=== PATIENT | male | born 1990 ===

== ENCOUNTER 2021-02-20 20:06 | Emergency (ER) | payer OTHER ==
[2021-02-20] MEDS ORDERED: Albuterol 8 GM Inhaler INH ONE (20:07)
[2021-02-20] MEDS ORDERED: Sodium Chloride 0.9% 10 ML Syringe FLUSH PRN (20:07)
[2021-02-20] MEDS ORDERED: Azithromycin 250 MG Tab PO ONE (20:07)
[2021-02-20] MEDS ORDERED: Albuterol/Ipratropium 3.0-0.5 MG/3 ML Neb Soln NEB ONE (20:07)
[2021-02-20] MEDS ORDERED: predniSONE 20 MG Tab PO ONE (20:07)
--- NOTE | 2021-02-20 20:10 | EDM.PDOC ---
ED HPI GENERAL MEDICAL PROBLEM - General Stated Complaint: BREATHING COMPLICATION Time Seen by Provider: 02/20/21 20:08 Source of Information: Reports: Patient History Limitations: Reports: No Limitations - History of Present Illness INITIAL COMMENTS - FREE TEXT/NARRATIVE: David complains of a cough for 3 days. In the last few hours,he has now developed shortness of breath and left sided chest pain; No fever. He his a smoker,but otherwise previously healthy., Headache Pain Score (Numeric/FACES): 7 - Related Data Allergies Allergy/AdvReac Type Severity Reaction Status Date / Time No Known Allergies Allergy Verified 02/20/21 21:01 Home Meds: Home Meds NK [No Known Home Meds] 02/20/21 [History] ED ROS GENERAL - Review of Systems Review Of Systems: Comprehensive ROS is negative, except as noted in HPI. ED EXAM, GENERAL - Physical Exam Exam: See Below Exam Limited By: No Limitations General Appearance: Anxious, Mild Distress Ears: Normal External Exam Ear Exam: Bilateral Ear: Auricle Normal, Canal Normal, TM normal Nose: Normal Inspection Throat/Mouth: Normal Inspection Head: Atraumatic Neck: Normal Inspection Respiratory/Chest: Rhonchi, Wheezing Cardiovascular: Normal Peripheral Pulses, Tachycardia GI/Abdominal: Normal Bowel Sounds Back Exam: Normal Inspection Extremities: Normal Inspection Neurological: Alert, Oriented, Abnormal Reflexes Skin Exam: Diaphoretic #1 Interpretation EKG Date: 02/20/21 Rhythm: NSR Range: Normal P-Wave: Present QRS: Normal ST-T: Normal Course - Vital Signs Last Recorded V/S: Last Vital Signs Temp 98.2 F 02/20/21 20:21 Pulse 78 02/20/21 20:21 Resp 30 H 02/20/21 20:21 BP 132/74 02/20/21 20:21 Pulse Ox 97 02/20/21 20:21 - Orders/Labs/Meds Orders: Active Orders 24 hr Category Date Time Status EKG Documentation Completion [RC] ASDIRECTED Care 02/20/21 20:07 Active RT Aerosol Therapy [RC] ASDIRECTED Care 02/20/21 20:08 Active Chest 1V Frontal [CR] Stat Exams 02/20/21 20:07 Taken CORONAVIRUS COVID-19 MANDA [MOLEC] Urgent Lab 02/20/21 20:55 Received Sodium Chloride 0.9% [Normal Saline] 1,000 ml Med 02/20/21 20:15 Active IV ASDIRECTED Sodium Chloride 0.9% [Saline Flush] Med 02/20/21 20:07 Active 10 ml FLUSH ASDIRECTED PRN Peripheral IV Insertion Adult [OM.PC] Routine Oth 02/20/21 20:07 Ordered EKG 12 Lead [EK] Routine Ther 02/20/21 20:07 Ordered Medication Orders Sodium Chloride (Normal Saline) 1,000 mls @ 999 mls/hr IV ASDIRECTED CHIQUIS Last Admin: 02/20/21 20:10 Dose: 999 mls/hr Documented by: SELVIN Sodium Chloride (Sodium Chloride 0.9% 10 Ml Syringe) 10 ml FLUSH ASDIRECTED PRN PRN Reason: Keep Vein Open Last Admin: 02/20/21 20:06 Dose: 10 ml Documented by: SELVIN Labs: Laboratory Tests 02/20/21 02/20/21 02/20/21 Range/Units 20:12 20:12 20:12 WBC 7.0 (3.2-10.1) x10-3/uL RBC 5.27 (3.90-5.90) x10(6)uL Hgb 15.5 (12.9-17.7) g/dL Hct 45.1 (38.3-50.1) % MCV 85.5 (80.8-98.7) fL MCH 29.3 (27.0-33.3) pg MCHC 34.3 (28.7-35.3) g/dL RDW 13.3 (12.4-15.0) % Plt Count 209 (117-477) x10(3)uL MPV 8.4 (6.7-11.0) fL Neut % (Auto) 47.5 (40.3-71.8) % Lymph % (Auto) 33.8 (15.8-45.3) % [place] % (Auto) 15.7 H (5.5-15.2) % Eos % (Auto) 2.2 (0.1-6.8) % Baso % (Auto) 0.8 (0.3-3.8) % Neut # (Auto) 3.3 (1.7-6.9) x10-3/uL Lymph # (Auto) 2.4 (0.5-4.5) x10-3/uL [place] # (Auto) 1.1 (0.0-1.2) x10-3/uL Eos # (Auto) 0.2 (0.0-0.6) x10-3/uL Baso # (Auto) 0.1 (0.0-0.3) x10-3/uL D-Dimer, Quantitative 0.65 H (0.0-0.59) mg/LFEU Sodium 142 (135-145) mmol/L Potassium 3.5 (3.5-5.3) mmol/L Chloride 102 (100-110) mmol/L Carbon Dioxide 26 (21-32) mmol/L BUN 13 (7-18) mg/dL Creatinine 1.3 (0.70-1.30) mg/dL Est Cr Clr Drug Dosing TNP Estimated GFR (MDRD) > 60 (>60) BUN/Creatinine Ratio 10.0 (9-20) Glucose 150 H (80-116) mg/dL Calcium 8.7 (8.6-10.2) mg/dL Total Bilirubin 0.3 (0.1-1.3) mg/dL AST 27 H (5-25) IU/L ALT 64 H (12-36) U/L Alkaline Phosphatase 68 (56-112) IU/L Troponin I (4.0-60.3) pg/mL NT-Pro-B Natriuret Pep (<=125) pg/mL Total Protein 7.8 (6.0-8.0) g/dL Albumin 4.0 (3.5-5.2) g/dL Globulin 3.8 g/dL Albumin/Globulin Ratio 1.1 /16/ Range/Units 20:12 WBC (3.2-10.1) x10-3/uL RBC (3.90-5.90) x10(6)uL Hgb (12.9-17.7) g/dL Hct (38.3-50.1) % MCV (80.8-98.7) fL MCH (27.0-33.3) pg MCHC (28.7-35.3) g/dL RDW (12.4-15.0) % Plt Count (117-477) x10(3)uL MPV (6.7-11.0) fL Neut % (Auto) (40.3-71.8) % Lymph % (Auto) (15.8-45.3) % [place] % (Auto) (5.5-15.2) % Eos % (Auto) (0.1-6.8) % Baso % (Auto) (0.3-3.8) % Neut # (Auto) (1.7-6.9) x10-3/uL Lymph # (Auto) (0.5-4.5) x10-3/uL [place] # (Auto) (0.0-1.2) x10-3/uL Eos # (Auto) (0.0-0.6) x10-3/uL Baso # (Auto) (0.0-0.3) x10-3/uL D-Dimer, Quantitative (0.0-0.59) mg/LFEU Sodium (135-145) mmol/L Potassium (3.5-5.3) mmol/L Chloride (100-110) mmol/L Carbon Dioxide (21-32) mmol/L BUN (7-18) mg/dL Creatinine (0.70-1.30) mg/dL Est Cr Clr Drug Dosing Estimated GFR (MDRD) (>60) BUN/Creatinine Ratio (9-20) Glucose (80-116) mg/dL Calcium (8.6-10.2) mg/dL Total Bilirubin (0.1-1.3) mg/dL AST (5-25) IU/L ALT (12-36) U/L Alkaline Phosphatase (56-112) IU/L Troponin I 4.9 (4.0-60.3) pg/mL NT-Pro-B Natriuret Pep 11 (<=125) pg/mL Total Protein (6.0-8.0) g/dL Albumin (3.5-5.2) g/dL Globulin g/dL Albumin/Globulin Ratio Meds: Medications Generic Name Dose Route Start Last Admin Trade Name Freq PRN Reason Stop Dose Admin Sodium Chloride 1,000 mls @ 999 mls/hr 02/20/21 20:15 02/20/21 20:10 Normal Saline IV 999 mls/hr ASDIRECTED CHIQUIS Administration Sodium Chloride 10 ml 02/20/21 20:07 02/20/21 20:06 Sodium Chloride 0.9% 10 Ml Syringe FLUSH 10 ml ASDIRECTED PRN Administration Keep Vein Open Discontinued Medications Generic Name Dose Route Start Last Admin Trade Name Samuel PRN Reason Stop Dose Admin Albuterol/Ipratropium 3 ml 02/20/21 20:07 02/20/21 20:12 Albuterol/Ipratropium 3.0-0.5 Mg/3 Ml Neb Soln NEB 02/20/21 20:08 3 ml ONETIME ONE Administration Departure - Departure Time of Disposition: 21:12 Disposition: Home, Self-Care 01 Condition: Good Clinical Impression: SOB (shortness of breath) on exertion Instructions: Acute Bronchitis, Adult, [id number] Referrals: PCP,None [Primary Care Provider] - 1 Day Additional Instructions: Quit smoking Sepsis Event Note (ED) - Focused Exam Vital Signs: Vital Signs Temp Pulse Resp BP Pulse Ox 02/20/21 20:21 98.2 F 78 30 H 132/74 97 02/20/21 20:12 62 - Problem List & Annotations (1) SOB (shortness of breath) on exertion SNOMED Code(s): 53776101 Code(s): R06.02 - SHORTNESS OF BREATH Status: Acute Current Visit: No - Problem List Review Problem List Initiated/Reviewed/Updated: Yes - My Orders Last 24 Hours: My Active Orders 02/20/21 20:07 EKG Documentation Completion [RC] ASDIRECTED Chest 1V Frontal [CR] Stat Sodium Chloride 0.9% [Saline Flush] 10 ml FLUSH ASDIRECTED PRN Peripheral IV Insertion Adult [OM.PC] Routine EKG 12 Lead [EK] Routine 02/20/21 20:08 RT Aerosol Therapy [RC] ASDIRECTED 02/20/21 20:15 Sodium Chloride 0.9% [Normal Saline] 1,000 ml IV ASDIRECTED 02/20/21 20:55 CORONAVIRUS COVID-19 MANDA [MOLEC] Urgent - Assessment/Plan Last 24 Hours: My Active Orders 02/20/21 20:07 EKG Documentation Completion [RC] ASDIRECTED Chest 1V Frontal [CR] Stat Sodium Chloride 0.9% [Saline Flush] 10 ml FLUSH ASDIRECTED PRN Peripheral IV Insertion Adult [OM.PC] Routine EKG 12 Lead [EK] Routine 02/20/21 20:08 RT Aerosol Therapy [RC] ASDIRECTED 02/20/21 20:15 Sodium Chloride 0.9% [Normal Saline] 1,000 ml IV ASDIRECTED 02/20/21 20:55 CORONAVIRUS COVID-19 MANDA [MOLEC] Urgent Plan: CXR,EKG and labs were good. Slight elevation on D Dimer,but no other signs to suggest PE. DC Home with Albuteol,Prednisone and ZpAK
[2021-02-20] MEDS ORDERED: Sodium Chloride 0.9% 1,000 ML IV SCH (20:15)
--- NOTE | 2021-02-21 10:35 | CR ---
INDICATION: Cough. CHEST ONE VIEW: AP portable upright view of the chest 02/20/21 - no comparisons. Overlying EKG leads are noted. The heart, mediastinum and bony thorax appear to be grossly unremarkable. No consolidating pneumonia or effusion was seen. However, there appears to be bronchial wall cuffing in the lower lung roman - lung bases, which may represent active peribronchial disease and/or fibrosis and should be correlated clinically. MTDD
== END 2021-02-20 21:48 | disposition home or self-care (01) ==
LOC: FB.ED 20:06
DX: R06.02 Shortness of breath (principal); Z20.822 Contact with and (suspected) exposure to COVID-19
CPT/HCPCS: 36415; 71045; 80053; 83880; 84484; 85025; 85379; 93005; 93010; 94640; 99284; 99285-25; A9270-GY; J7030; J7512; J7620-GY; U0002